=== PATIENT | male | born 1995 | race Caucasian/White ===

== ENCOUNTER 2017-04-09 01:29 | Emergency (ER) | payer OTHER ==
--- NOTE | 2017-04-09 01:40 | EDM.PDOC ---
ED HPI GENERAL MEDICAL PROBLEM - General Chief Complaint: ENT Problem Stated Complaint: SWOLLEN GLANDS, SORE THROAT Time Seen by Provider: 04/09/17 01:31 Source of Information: Reports: Patient History Limitations: Reports: No Limitations - History of Present Illness INITIAL COMMENTS - FREE TEXT/NARRATIVE: HISTORY AND PHYSICAL: History of present illness: [21-year-old male with no significant past medical history recently seen for sore throat. He states a rapid strep was done which was negative however his pain is been worsening. He has no shortness of breath or productive cough. No headache or stiff neck. He is able swallow without difficulty but it is uncomfortable. Patient is concerned he may have strep and it was undiagnosed.] Review of systems: As per history of present illness and below otherwise all systems reviewed and negative. Past medical history: As per history of present illness and as reviewed below otherwise noncontributory. Surgical history: As per history of present illness and as reviewed below otherwise noncontributory. Social history: No reported history of drug or alcohol abuse. Family history: As per history of present illness and as reviewed below otherwise noncontributory. Physical exam: Well-appearing patient no acute distress bilateral tonsillar white exudates with no asymmetry. Midline uvula with normal voice no stridor. Supple neck with no adenopathy. Clear lungs regular rate and rhythm no murmur remainder exam is benign HEENT: Atraumatic, normocephalic, pupils reactive, negative for conjunctival pallor or scleral icterus, mucous membranes moist, throat clear, neck supple, nontender, trachea midline. Lungs: Clear to auscultation, breath sounds equal bilaterally, chest nontender. Heart: S1S2, regular, negative for clicks, rubs, or JVD. Abdomen: Soft, nondistended, nontender. Negative for masses or hepatosplenomegaly. Negative for costovertebral tenderness. Pelvis: Stable nontender. Genitourinary: Deferred. Rectal: Deferred. Extremities: Atraumatic, negative for cords or calf pain. Neurovascular unremarkable. Neuro: Awake, alert, oriented. Cranial nerves grossly unremarkable Exam nonfocal. Diagnostics: [] Therapeutics: [Penicillin given by mouth and prescription dispensed Impression: [] Plan: [Signs and symptoms consistent with pharyngitis discussed with patient possibility of viral etiology alone however persistent and worsening symptoms and tonsillar exudates consistent with strep. Will prescribe penicillin. Dose given in ED. Patient aware to take NSAIDs as needed follow-up with his primary care doctor and return immediately for new severe or worsening symptoms] Definitive disposition and diagnosis as appropriate pending reevaluation and review of above. Throat Pain Score (Numeric/FACES): 9 - Related Data Allergies Allergy/AdvReac Type Severity Reaction Status Date / Time No Known Allergies Allergy Verified 04/09/17 01:41 Home Meds: Home Meds Penicillin V Potassium [IJP: Penicillin V Potassium] 500 mg PO .EVERY 6 HOURS # 40 tab 04/09/17 [Rx] ED ROS ENT - Review of Systems Review Of Systems: See Below (History of present illness) ED EXAM, ENT - Physical Exam Exam: See Below (History of present illness) Course - Vital Signs Last Recorded V/S: Last Vital Signs Temp 36.8 C 04/09/17 02:14 Pulse 56 L 04/09/17 02:14 Resp 17 04/09/17 02:14 BP 119/58 L 04/09/17 02:14 Pulse Ox 98 04/09/17 02:14 - Orders/Labs/Meds Meds: Medications Discontinued Medications Generic Name Dose Route Start Last Admin Trade Name Freq PRN Reason Stop Dose Admin Acetaminophen 650 mg 04/09/17 02:01 04/09/17 02:10 Tylenol PO 04/09/17 02:02 650 mg NOW ONE Administration Penicillin V Potassium 500 mg 04/09/17 02:01 04/09/17 02:10 Veetids PO 04/09/17 02:02 500 mg ONETIME ONE Administration Departure - Departure Time of Disposition: 02:02 Disposition: Home, Self-Care 01 Condition: Good Clinical Impression: Pharyngitis - Discharge Information Prescriptions: Penicillin V Potassium [IJP: Penicillin V Potassium] 500 mg PO .EVERY 6 HOURS # 40 tab Instructions: Pharyngitis, [id number] Referrals: PCP,None [Primary Care Provider] - Forms: ED Department Discharge Additional Instructions: You have pharyngitis. if this is caused by strep throat the penicillin prescription we've given you 4 times a day for 10 days should cure it. if it's the result of a viral infection it will get better on its own. rest and drink plenty of fluids.Take ibuprofen 600 mg every 6 hours and Tylenol every 4 hours as needed for pain. consider hot saltwater gargles if you find this to be helpful for your discomfort. follow-up with your Dr. in one to 2 days and return immediately for new severe or worsening symptoms.
[2017-04-09] MEDS ORDERED: Penicillin V Potassium 500 MG Tab PO ONE (02:01)
[2017-04-09] MEDS ORDERED: Acetaminophen 325 MG Tab PO ONE (02:01)
== END 2017-04-09 02:15 | disposition home or self-care (01) ==
LOC: MW.ED 01:29
DX: J02.9 Acute pharyngitis, unspecified (principal)
CPT/HCPCS: 99282; A9270